=== PATIENT | female | born 1950 | race Caucasian/White ===

== ENCOUNTER → 2024-07-05 | Outpatient (CLI) | payer OTHER, SELFPAY ==
--- NOTE | 2024-07-05 15:00 | XR_ITS ---
Examination: CT chest, without intravenous contrast. Sagittal and coronal 2-D reconstructions. Exam date and time: July 05, 2024 1529 hours Comparison January 13, 2024 INDICATIONS: Diagnosis malignant neoplasm ascending colon, CT chest January 13, 2024 4 mm pulmonary nodule left upper lobe 3 mm pulmonary nodule anterior segment right upper lobe CTDI:vol (mGy) 5.79 DLP: (mGycm) 216 Technique: Multiple 3.0 mm axial sections of the chest to been obtained. Bone and lung density settings are obtained. Sagittal and coronal 2-D reconstructions have been obtained. Low dose protocols were performed. One or more of the following dose reduction techniques were used; automated exposure control, adjustment of the mA and/or KV according to patient size, use of iterative reconstruction technique. Findings: No thoracic aortic aneurysm dilatation Pulmonary artery segments are not enlarged No paratracheal tracheobronchial or bronchopulmonary adenopathy Stable 4 mm pulmonary nodule left upper lobe Stable 3 mm pulmonary nodule anterior segment right upper lobe No interval pneumonia or edema No visualized liver or splenic lesion Absent gallbladder No pancreatic mass Kidneys partially visualized no hydronephrosis Prominent osteopenia IMPRESSION: Stable pulmonary nodules compared with January 13, 2024, no new pulmonary nodules
== END | disposition home or self-care (01) ==
PROVIDERS: Referring Provider Internal Medicine Hematology & Oncology; Visit Provider Internal Medicine Hematology & Oncology
DX: R91.8 Other nonspecific abnormal finding of lung field (principal); C18.2 Malignant neoplasm of ascending colon
CPT/HCPCS: 71250

== ENCOUNTER → 2024-07-29 | Outpatient (CLI) | payer OTHER, SELFPAY ==
[2024-07-29 11:25] LABS: Basophils # (Auto) 0.1 Thou/mm3 (0.0-0.2); Basophils % (Auto) 1 % (0-2.5); Eosinophils # (Auto) 0.7 Thou/mm3 (0.0-0.5); Eosinophils % (Auto) 7 % (0-10); Hematocrit 34.7 % (36.0-46.0); Hemoglobin 10.9 g/dL (12.0-16.0); Immature Granulocytes % (Auto) 0 % (0-0); Immature Granulocytes Auto 0.02 Thou/mm3 (0.00-0.00); Lymphocytes % (Auto) 31 % (10-50); Mean Corpuscular HGB Conc 31.4 g/dl (31.0-37.0); Mean Corpuscular Hemoglobin 30.3 pg (25.0-35.0); Mean Corpuscular Volume 96 fL (80-100); Monocytes # (Auto) 0.7 Thou/mm3 (0.0-0.8); Monocytes % (Auto) 7 % (0-12); Neutrophils # (Auto) 5.1 Thou/mm3 (1.8-7.7); Neutrophils % (Auto) 53 % (37-80); Nucleated Red Blood Cell % 0 /100 WBC (0); Platelet Count 367 Thou/mm3 (140-440); RDW Standard Deviation 51.2 fL (36.4-46.3); White Blood Count 9.6 Thou/mm3 (3.6-11.0)
[2024-07-29 11:49] LABS: Alanine Aminotransferase 8 U/L (10-49); Albumin, Serum 4.4 gm/dL (3.4-4.8); Albumin/Globulin Ratio 1.9 (1.2-2.2); Alkaline Phosphatase 119 U/L (46-116); Anion Gap 7 (7-16); Aspartate Amino Transferase 13 U/L (0-34); BUN/Creatinine Ratio 25 Ratio (12-20); Bilirubin,Total 0.2 mg/dL (0.3-1.2); Blood Urea Nitrogen 27 mg/dL (9-23); Calcium 9.2 mg/dL (8.3-10.6); Calcium (Corrected) 9.2 mg/dL (8.5-10.1); Carbon Dioxide 24.5 mMol/L (20.0-31.0); Chloride 109 mMol/L (98-107); Creatinine (Component) 1.1 mg/dL (0.6-1.3); Globulin 2.3 gm/dL (2.3-3.5); Glucose 83 mg/dL (74-106); Osmolality,Calculated 283 (275-295); Potassium 4.9 mMol/L (3.4-5.1); Sodium 140 mMol/L (136-145); Total Protein 6.7 gm/dL (5.7-8.2); eGFR 53 See Note
== END | disposition home or self-care (01) ==
LOC: SCTO 10:17
PROVIDERS: PCP Family Medicine; Referring Provider Internal Medicine Hematology & Oncology; Visit Provider Internal Medicine Hematology & Oncology
DX: C18.2 Malignant neoplasm of ascending colon (principal)
CPT/HCPCS: 36415; 80053; 85025

== ENCOUNTER 2024-08-01 11:39 | Outpatient (RCR) | payer OTHER, SELFPAY ==
--- NOTE | 2024-08-01 14:37 | CTCFLWUP_ITS ---
Patient: NICOLE MOSHER : 1950 Page 2 of 2 FOLLOW UP NOTE DATE OF SERVICE: 08/01/2024 NAME: NICOLE MOSHER ACCOUNT: [id number] : 1950 AGE: 73 INTERVAL HISTORY: Patient is doing well. ONCOLOGY HISTORY: DIAGNOSIS: Malignant neoplasm of ascending colon [ICD10] C18.2 Stage IIIb (pT3, n1a, M0) moderately differentiated MMR proficient, adenocarcinoma of the cecum. Status post hemicolectomy and ileotransverse colostomy (11/26/2022) Ms. Mosher decided not to take adjuvant chemotherapy Primary hepatocellular disease versus cirrhosis S/p paracentesis. Benign ascetic fluid. No evidence of malignancy chronic back pain for which patient is getting oxycodone from pain clinic Cachexia her recent weight is 94 pounds. Persistent diarrhea. Patient is allergic to CT contrast DATE OF DIAGNOSIS: 11/26/2022 STAGE/TNM: Stage 3 TREATMENT HISTORY: Care?Plan Start?Date Cycle Day Intent CapOX?adj?T3N1?3mon?4?cycles 03/02/2023 1 21 Curative?(adjuvant) HISTORY OF PRESENT ILLNESS: Nicole Mosher is a 73-year-old ENG speaking female with the following history back pain of 12 years duration. Patient has been on oxycodone being provided by pain clinic in [place]. 11/23/2022: Ms. Mosher was seen in the emergency room here at [facility] because of abdominal pain. 11/23/2022: CT scan of the abdomen and pelvis without contrast 11/26/2022: Ms. Mosher had right hemicolectomy and ileotransverse colostomy. 01/02/2023: 02/19/2023: PET/CT scan OTHER MEDICAL HISTORY/CONDITIONS: COPD Heart murmur and arrhythmia Colon cancer - dx 11/26/22 Right hemicolectomy with ileotransverse colectomy - 11/26/22 Cholecystectomy - 2006 Right wrist fx with fixation - 20yrs ago Resection due to anal prolapse following delivery - 1987 FAMILY HISTORY: Father:?Liver?-?dx?69?-? Mother:?Stomach?-?dx?86?-? 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 Tobacco?Pack?per?Day:?1 Tobacco?Use?Years:?40 Tobacco?Use:?Quit?1?yr?ago ETOH?Use:?Socailly Drug?Note:?Denies Social?History?Note:?Lives?with? [employer] HISTORY: Menarche?-?Age:?13 Menopause:?54 Hormone?Use:?DENIES :?1 Live?Births:?1 Age?1st?:?32 MEDICATIONS: 1. albuterol sulfate - As directed 2. Aspirin Compound - 325 mg Daily 3. BuSpar - As directed 4. lisinopril - 5 mg Daily 5. Lomotil - 2.5-0.025 mg 1 tab one po four times a day prn diarrhea 6. oxyCODONE - 7.5 mg 1 tab q6 7. oxycodone - 5 mg 1 tab q6 8. potassium gluconate - 650 mg Twice a Day 9. Topamax - 100 mg 1 tab Twice a Day Medications Last Reconciled by Nataliya Vasques MA on 08/01/2024 ALLERGIES: PENICILLAMINE; PENICILLAMINE; Iodinated Contrast Media; guaifenesin REVIEW OF SYSTEMS: A complete 14-point review of systems was performed and is negative except as noted in interval history. PHYSICAL EXAMINATION: VITAL SIGNS: Temperature?97.6, B/P?145/83, Oxygen?Saturation?99% Weight?102?lbs PAIN: 0 - No pain ECOG Performance Status: 0 - Asymptomatic and fully active GENERAL APPEARANCE: Appears well, in no apparent distress, appropriately interactive. HEENT: Normocephalic, no temporal wasting, normal conjunctiva, no scleral icterus, normal hearing, lips without lesions, neck normal range of motion. CARDIOVASCULAR: Not assessed. PULMONARY: Normal respiratory effort, no respiratory distress or use of accessory muscles, speaking in full sentences, no tachypnea. EXTREMITIES: No pedal edema or cyanosis. SKIN: Normal skin appearance. NEUROLOGIC: Alert and oriented x4. PSHYCHIATRIC: Appropriate affect, mood normal, behavior normal, intact thought and speech. LABORATORY DATA: I have personally reviewed and interpreted each of the patient?s relevant lab tests, abnormal findings are below: Date 07/29/24 ??WHITE?BLOOD?COUNT?(Thou/mm3) 9.6 ??RED?BLOOD?COUNT?(Miln/mm3) 3.60?L ??HEMOGLOBIN?(gm/dl) 10.9?L ??HEMATOCRIT?(%) 34.7?L ??PLATELET?COUNT?(Thou/mm3) 367 ??NEUTROPHILS?%,?AUTO?(%) 53 ??LYMPH?%,?AUTO?(%) 31 ??NEUTROPHILS,?AUTO?(Thou/mm3) 5.1 ASSESSMENT/PLAN: 1. Stage IIIb (pT3, n1a, M0) moderately differentiated MMR proficient, adenocarcinoma of the cecum. Status post hemicolectomy and ileotransverse colostomy (11/26/2022) Patient decided not to have adjuvant chemotherapy. Primary hepatocellular disease versus cirrhosis S/p paracentesis. Benign ascetic fluid. No evidence of malignancy chronic back pain for which patient is getting oxycodone from pain clinic Cachexia (Ms. Mosher is a 94 pounds) 07/23/2024 PET/CT scan is negative RTC in 6 months ORDERS: [email or web address] RETURN TO CLINIC: 6 months BILLING AND COMPLIANCE: I reviewed external records from providers outside my specialty as summarized above. I spent a total of 50 minutes on this patient?s care on the day of their visit excluding time spent related to any billed procedures. This time includes time spent with the patient as well as time spent documenting in the medical record, reviewing patients records and tests, obtaining history, placing orders, communicating with other healthcare professionals, counseling the patient, family or caregiver, and/or care coordination for the diagnoses above. Electronically Signed by: Vimal Ramírez MD T: 2:34 PM CC: PCP: Vimal Ramírez Referring: Vimal Ramírez This document was completed utilizing speech recognition software. Grammatical errors, random word insertions, pronoun errors, and incomplete sentences are an occasional consequence of this system due to software limitations, ambient noise, and hardware issues. Any formal questions or concerns about the content, text or information contained within the body of this dictation should be directly addressed to the provider for clarification.
== END 2024-08-19 23:59 | disposition home or self-care (01) ==
LOC: SCTC 11:39
PROVIDERS: PCP Family Medicine; Referring Provider Internal Medicine Hematology & Oncology; Visit Provider Internal Medicine Hematology & Oncology
DX: C18.0 Malignant neoplasm of cecum (principal); Z90.49 Acquired absence of other specified parts of digestive tract; Z93.3 Colostomy status; M54.9 Dorsalgia, unspecified; G89.29 Other chronic pain; R64 Cachexia; Z68.21 Body mass index [BMI] 21.0-21.9, adult
CPT/HCPCS: 99212; G0463